=== PATIENT | female | born 1990 | race Two or more races ===

== ENCOUNTER 2019-01-26 14:15 | Inpatient (IN) | payer OTHER ==
[~2019-01-26] VITALS: Ht 152.4 cm; Wt 49.9 kg
[2019-01-26] MEDS ORDERED: PRENATAL TABLE1 EAC1 PO (16:29)
== END 2019-01-29 12:49 | disposition home or self-care (01) | DRG 807 ==
LOC: LDR 14:15 → OB/GYN 01-27 18:36
PROVIDERS: ADMIT Obstetrics & Gynecology
PROC: 10907ZC Drainage of Amniotic Fluid, Therapeutic from Products of Conception, Via Natural or Artificial Opening (ICD-10-PCS; 2019-01-26)
PROC: 0W8NXZZ Division of Female Perineum, External Approach (ICD-10-PCS; 2019-01-26)
PROC: 4A1HXCZ Monitoring of Products of Conception, Cardiac Rate, External Approach (ICD-10-PCS; 2019-01-26)
PROC: 10E0XZZ Delivery of Products of Conception, External Approach (ICD-10-PCS; principal; 2019-01-27)
DX: O80 Encounter for full-term uncomplicated delivery (principal); Z37.0 Single live birth; Z3A.38 38 weeks gestation of pregnancy

== ENCOUNTER → 2020-06-01 | Outpatient (CLI) | payer OTHER ==
[~2020-06-01] MED LIST: PRENATAL TABLE1 EAC1 PO
== END | disposition home or self-care (01) ==
LOC: PRENATAL 11:11
PROVIDERS: ATTEND Obstetrics & Gynecology Maternal & Fetal Medicine
DX: O26.843 Uterine size-date discrepancy, third trimester (principal); Z36.89 Encounter for other specified antenatal screening; Z3A.31 31 weeks gestation of pregnancy

== ENCOUNTER 2020-07-25 00:37 | Inpatient (IN) | payer OTHER ==
[~2020-07-25] VITALS: Ht 152.4 cm; Wt 50.3 kg
== END 2020-07-27 15:29 | disposition home or self-care (01) | DRG 807 ==
LOC: LDR 00:37 → SURG-SUITE 00:37
PROVIDERS: ADMIT Obstetrics & Gynecology; ATTEND Obstetrics & Gynecology
PROC: 10E0XZZ Delivery of Products of Conception, External Approach (ICD-10-PCS; principal; 2020-07-25)
PROC: 0HQ9XZZ Repair Perineum Skin, External Approach (ICD-10-PCS; 2020-07-25)
PROC: 4A1HXFZ Monitoring of Products of Conception, Cardiac Rhythm, External Approach (ICD-10-PCS; 2020-07-25)
DX: O70.0 First degree perineal laceration during delivery (principal); Z37.0 Single live birth; Z3A.38 38 weeks gestation of pregnancy; Z20.822 Contact with and (suspected) exposure to COVID-19

== ENCOUNTER 2021-08-09 08:22 | Outpatient (CLI) | payer OTHER | END 2021-08-09 09:45 | disposition home or self-care (01) | LOC: PRENATAL 08:22 | PROVIDERS: ATTEND Obstetrics & Gynecology Maternal & Fetal Medicine | DX: O35.0XX0 Maternal care for (suspected) central nervous system malformation in fetus, not applicable or unspecified (principal); O35.3XX0 Maternal care for (suspected) damage to fetus from viral disease in mother, not applicable or unspecified ==

== ENCOUNTER 2021-09-15 21:03 | Emergency (ER) | payer OTHER ==
[~2021-09-15] VITALS: Ht 152.4 cm; Wt 47.6 kg
[2021-09-15] MEDS ORDERED: ZYRTEC10 MG PO (22:46)
[2021-09-15] MEDS ORDERED: GILTUSS EX200 MG/5 M PO (22:46)
== END 2021-09-15 22:51 | disposition home or self-care (01) ==
LOC: ER 21:03
DX: O98.512 Other viral diseases complicating pregnancy, second trimester (principal); Z3A.26 26 weeks gestation of pregnancy; A49.3 Mycoplasma infection, unspecified site; Z88.0 Allergy status to penicillin

== ENCOUNTER 2021-10-19 18:31 | Outpatient (CLI) | payer OTHER ==
[~2021-10-19 18:31] MED LIST changes: +GILTUSS EX200 MG/5 M PO; +ZYRTEC10 MG PO
== END 2021-10-19 18:54 | disposition home or self-care (01) ==
LOC: NST 18:31
PROVIDERS: ATTEND Obstetrics & Gynecology
DX: Z34.90 Encounter for supervision of normal pregnancy, unspecified, unspecified trimester (principal)

== ENCOUNTER 2021-11-01 08:52 | Emergency (ER) | payer OTHER ==
[~2021-11-01] VITALS: Ht 152.4 cm; Wt 52.2 kg
[2021-11-01] MEDS ORDERED: NIFEDIPINE ER30 M1 PO (09:32)
== END 2021-11-01 11:07 | disposition home or self-care (01) ==
LOC: ER 08:52
DX: H66.90 Otitis media, unspecified, unspecified ear (principal); Z88.1 Allergy status to other antibiotic agents

== ENCOUNTER 2021-12-13 03:56 | Inpatient (IN) | payer OTHER ==
[~2021-12-13] VITALS: Ht 152.4 cm; Wt 53.1 kg
[~2021-12-13 03:56] MED LIST changes: +NIFEDIPINE ER30 M1 PO
[2021-12-13] MEDS ORDERED: CETIRIZINE HCL10 MG (14:04)
== END 2021-12-15 12:59 | disposition home or self-care (01) | DRG 807 ==
LOC: LDR 03:56 → OB/GYN 07:50
PROVIDERS: ADMIT Obstetrics & Gynecology Maternal & Fetal Medicine; ATTEND Obstetrics & Gynecology Maternal & Fetal Medicine
PROC: 10E0XZZ Delivery of Products of Conception, External Approach (ICD-10-PCS; principal; 2021-12-13)
PROC: 4A1HXCZ Monitoring of Products of Conception, Cardiac Rate, External Approach (ICD-10-PCS; 2021-12-13)
DX: O80 Encounter for full-term uncomplicated delivery (principal); Z37.0 Single live birth; Z3A.38 38 weeks gestation of pregnancy; Z20.822 Contact with and (suspected) exposure to COVID-19

== ENCOUNTER 2025-04-23 21:35 | Emergency (ER) | payer OTHER ==
[~2025-04-23] VITALS: Ht 152.4 cm; Wt 40.8 kg
[~2025-04-23 21:35] MED LIST changes: +CETIRIZINE HCL10 MG
[2025-04-23 23:28] LABS: BASO % 0.4 % (0.1-1.2); EOS # 0.05 (0.04-0.54); EOS % 1.1 % (0.7-7.0); LYMPH # 1.80 (1.18-3.74); LYMPH % 40.3 % (19.3-53.1); MEAN PLATELET VOLUME 10.40 fl (9.4-12.4); MONO # 0.48 (0.24-0.82); MONO % 10.7 % (4.7-12.5); NEUT # 2.11 (1.56-6.13); NEUT % 47.3 % (34.0-71.1); RED CELL DISTRIBUTION WIDTH 12.5 % (11.6-14.4)
== END 2025-04-24 01:46 | disposition home or self-care (01) ==
LOC: ER 21:36
PROVIDERS: General Practice
DX: D69.3 Immune thrombocytopenic purpura (principal); Z88.0 Allergy status to penicillin; K06.8 Other specified disorders of gingiva and edentulous alveolar ridge